=== PATIENT | male | born 1965 | race Caucasian/White ===

== ENCOUNTER → 2021-06-30 | Outpatient (CLI) | payer OTHER ==
[~2021-06-30] MED LIST: COVID-19 VACC, MRNA(MODERNA)/PF 100 MCG/0.5 ML VIAL IM ONE
== END ==
LOC: VACCPMC 16:15
DX: Z23 Encounter for immunization (principal); Z20.822 Contact with and (suspected) exposure to COVID-19
CPT/HCPCS: 91301

== ENCOUNTER → 2022-11-03 | Outpatient (CLI) | payer OTHER, BC | LOC: MRI 12:03 | PROVIDERS: ATTEND Neurological Surgery | DX: R51.0 Headache with orthostatic component, not elsewhere classified (principal); V89.2XXA Person injured in unspecified motor-vehicle accident, traffic, initial encounter | CPT/HCPCS: 70551 ==